=== PATIENT | male | born 1945 | race Caucasian/White ===

== ENCOUNTER 2017-10-07 07:11 | Outpatient (CLI) | payer MEDICARE, OTHER | END 2017-10-07 07:12 | disposition home or self-care (01) | LOC: BICULT 07:11 | PROVIDERS: ATTEND Urology | DX: N28.1 Cyst of kidney, acquired (principal) | CPT/HCPCS: 76770; 80048; 81001; 87086; G0103; 36415 ==

== ENCOUNTER 2022-02-27 08:44 | Outpatient (CLI) | payer MEDICARE, OTHER | END 2022-02-27 08:45 | disposition home or self-care (01) | LOC: LABBT 08:44 | PROVIDERS: ATTEND Thoracic Surgery (Cardiothoracic Vascular Surgery) | DX: Z01.818 Encounter for other preprocedural examination (principal); I73.9 Peripheral vascular disease, unspecified | CPT/HCPCS: 93005; 93010 ==

== ENCOUNTER 2022-02-27 09:15 | Inpatient (IN) | payer MEDICARE, OTHER ==
[2022-02-27 10:15] LABS: Hemoglobin 15.5 g/dL (13.5-17.5); Mean Corpuscular HGB CONC 33.7 g/dL (32.0-36.0); Mean Platelet Volume 10.9 fl (7.4-10.4); Platelet Count 222 10x3/uL (150-450); RBC Distribution Width 11.9 % (11.5-14.5); Red Blood Cell (RBC) Count 4.84 10x6/uL (4.32-5.72); White Blood Cell (WBC) Count 7.5 10x3/uL (3.5-10.5)
[2022-02-27 10:42] LABS: Anion Gap 13 mmol/L (10-20); BUN (Urea Nitrogen) 24 mg/dL (8.4-25.7); Calc. Creatinine Clearance 0 mL/min (70-130); Calcium 9.9 mg/dL (7.8-10.44); Carbon Dioxide 26 mmol/L (23-31); Chloride 101 mmol/L (98-107); Glucose 110 mg/dL (83-110); Potassium 4.4 mmol/L (3.5-5.1); Sodium 136 mmol/L (136-145)
[2022-02-27 19:01] LABS: SARS-CoV-2 PCR by NAA Not Detected (NotDetected)
[2022-03-02] MEDS ORDERED: Lidocaine 1% MPF 2 ML VIAL ONE (06:22)
[2022-03-02] MEDS ORDERED: Heparin 5,000 UNITS/ML VIAL ONE (06:39)
[2022-03-02] MEDS ORDERED: Protamine Sulfate 250 MG/25 ML VIAL ONE (06:39)
[2022-03-02] MEDS ORDERED: ceFAZolin (BATCH) 2 GM/100 ML BAG ONE (07:10)
[2022-03-02] MEDS ORDERED: Fentanyl 100 MCG/2 ML VIAL ONE (07:10)
[2022-03-02] MEDS ORDERED: Midazolam HCl 2 mg/2 ml Vial ONE (07:10)
[2022-03-02] MEDS ORDERED: Rocuronium Bromide 10 MG/ML (10ML VIAL) ONE (07:40)
[2022-03-02] MEDS ORDERED: Dexamethasone 20 MG/5 ML VIAL ONE (07:40)
[2022-03-02] MEDS ORDERED: Ondansetron PF 4 MG/2 ML Vial ONE (07:40)
[2022-03-02] MEDS ORDERED: PROPOFOL 200 MG/20 ML VIAL ONE (07:40)
[2022-03-02] MEDS ORDERED: EPINEPHrine 1 MG/ML AMP ONE (08:06)
[2022-03-02] MEDS ORDERED: Bupivacaine 0.25% 10 ML VIAL ONE (08:06)
[2022-03-02] MEDS ORDERED: Protamine Sulfate 50 MG/5 ML VIAL ONE (08:45)
[2022-03-02] MEDS ORDERED: Non-Formulary Medication 1 EACH PO PRN (09:38)
[2022-03-02] MEDS ORDERED: Promethazine HCl 25 MG/ML VIAL IM/IV PRN (09:45)
[2022-03-02] MEDS ORDERED: Ondansetron HCl/PF 4 MG/2 ML Vial IVP PRN (09:45)
[2022-03-02] MEDS ORDERED: Sodium Chloride 0.9% 1,000 ML IV SCH (10:04)
[2022-03-02] MEDS ORDERED: Promethazine HCl 25 MG/ML VIAL IM PRN ×2 (10:04)
[2022-03-02] MEDS ORDERED: traMADol HCl 50 MG TAB PO PRN ×2 (10:04)
[2022-03-02] MEDS ORDERED: ceFAZolin 2 GM/Dextrose 50 ML 2 GM in Premix Bag 1 BAG IVPB SCH (10:04)
[2022-03-02] MEDS ORDERED: Ondansetron PF 4 MG/2 ML Vial IVP PRN (10:04)
[2022-03-02] MEDS ORDERED: Fentanyl 100 MCG/2 ML VIAL SLOW IVP PRN (10:04)
[2022-03-02] MEDS ORDERED: Acetaminophen 325 MG TAB PO PRN (10:04)
[2022-03-02 11:02] VITALS: BMI 30.7
[2022-03-02] MEDS: ceFAZolin (BATCH) 2 GM in Premix Bag 1 BAG IVPB SCH ×2 (13:41→21:33)
[2022-03-02] MEDS ORDERED: Bisoprolol Fumarate 5 MG TAB PO SCH (21:00)
[2022-03-02] MEDS ORDERED: Rosuvastatin 5 MG TAB PO SCH (21:00)
[2022-03-02] MEDS ORDERED: Lisinopril 20 MG TAB PO SCH (21:00)
[2022-03-02] MEDS ORDERED: cloNIDine 0.1 MG TAB PO SCH (21:00)
[2022-03-03] MEDS: ceFAZolin (BATCH) 2 GM in Premix Bag 1 BAG IVPB SCH (05:42)
[2022-03-03 06:58] VITALS: TEMP 97.7
[2022-03-03 07:26] VITALS: BP 153/75
[2022-03-03] MEDS ORDERED: Amlodipine 10 MG TAB PO SCH (09:00)
[2022-03-03] MEDS ORDERED: Aspirin Chewable 81 MG TAB PO SCH (09:00)
== END 2022-03-03 07:46 | disposition home or self-care (01) | DRG 272 ==
LOC: SURG A 03-02 05:57 → SURG B 03-02 10:52
PROVIDERS: ADMIT Thoracic Surgery (Cardiothoracic Vascular Surgery); ATTEND Thoracic Surgery (Cardiothoracic Vascular Surgery)
PROC: 04CK0ZZ Extirpation of Matter from Right Femoral Artery, Open Approach (ICD-10-PCS; principal; 2022-03-02)
PROC: 04CH0ZZ Extirpation of Matter from Right External Iliac Artery, Open Approach (ICD-10-PCS; 2022-03-02)
DX: I70.211 Atherosclerosis of native arteries of extremities with intermittent claudication, right leg (principal); Z20.822 Contact with and (suspected) exposure to COVID-19; I10 Essential (primary) hypertension; E78.5 Hyperlipidemia, unspecified; N28.1 Cyst of kidney, acquired; Z79.82 Long term (current) use of aspirin; Z79.899 Other long term (current) drug therapy
CPT/HCPCS: 76000; 80048; 85027; 86850; 86900; 86901; 93005; 93010; C1768; J0171; J0690; J1100; J1644; J2250; J2405; J2704; J2720; J3010; S0020; U0003; U0005